=== PATIENT | female | born 1960 | race Caucasian/White ===

== ENCOUNTER 2022-12-20 13:12 | Emergency (ER) | payer OTHER ==
[~2022-12-20] VITALS: Ht 157.5 cm; Wt 98.4 kg
[2022-12-20] MEDS ORDERED: NEURONTIN800 MG (13:56)
[2022-12-20] MEDS ORDERED: KETO10TA2 PO (15:09)
[2022-12-20] MEDS ORDERED: NORFLEX100MG PO (15:09)
== END 2022-12-20 15:38 | disposition home or self-care (01) ==
LOC: ER 13:12
DX: M25.561 Pain in right knee (principal); M19.90 Unspecified osteoarthritis, unspecified site

== ENCOUNTER 2025-04-09 21:03 | Emergency (ER) | payer OTHER ==
[~2025-04-09] VITALS: Ht 157.5 cm; Wt 81.6 kg
[~2025-04-09 21:03] MED LIST: KETO10TA2 PO; NEURONTIN800 MG; NORFLEX100MG PO
[2025-04-10 00:17] LABS: BASO % 0.3 % (0.1-1.2); EOS # 0.12 (0.04-0.54); EOS % 0.9 % (0.7-7.0); HEMATOCRIT 33.6 % (34.1-44.9); LYMPH # 0.71 (1.18-3.74); LYMPH % 5.2 % (19.3-53.1); MEAN CORPUSCULAR HEMOGLOBIN 26.5 pg (25.6-32.2); MONO # 1.13 (0.24-0.82); MONO % 8.3 % (4.7-12.5); PLATELET COUNT 504 K/uL (163-369); RED BLOOD COUNT 4.15 M/uL (3.93-5.22); RED CELL DISTRIBUTION WIDTH 16.6 % (11.6-14.4)
[2025-04-10 00:23] LABS: COVID-19 AG NEGATIVE (NEGATIVE)
[2025-04-10 00:31] LABS: INFLUENZA A AG NEGATIVE (NEGATIVE); INFLUENZA B AG NEGATIVE (NEGATIVE)
[2025-04-10 00:49] LABS: URINE APPEARANCE Cloudy; URINE BILIRRUBIN Negative (NEGATIVE); URINE BLOOD Small; URINE COLOR Dark Yellow; URINE GLUCOSE Negative (NEGATIVE); URINE KETONE Trace (NEGATIVE); URINE LEUKOCYTE Trace; URINE NITRATE Negative; URINE PROTEIN 30 (NEGATIVE)
[2025-04-10 00:52] LABS: URINE BACTERIA 167.6 uL (0.0-1933); URINE CAST 2.94 uL (0.0-1.40); URINE EPITHELIAL CELLS 52.4 uL (0.0-38.8); URINE RBC 65.6 uL (0.0-20.8); URINE WBC 11.3 uL (0.0-23.2)
[2025-04-10 01:09] LABS: ALBUMIN 2.5 gm/dL (3.4-5.0); BILIRUBIN TOTAL 0.62 mg/dL (0.3-1.2); CALCIUM 8.9 mg/dL (8.5-10.1); CREATININE SERUM 0.86 mg/dL (0.55-1.02); GFR 66.86; GLOBULINA 5.4 G/DL (2.4-3.5); POTASSIUM 3.38 mEq/L (3.5-5.1); TOTAL PROTEIN 7.9 gm/dL (6.4-8.2)
== END 2025-04-10 02:06 | disposition home or self-care (01) ==
LOC: ER 21:03
PROVIDERS: Preventive Medicine Public Health & General Preventive Medicine
DX: R60.0 Localized edema (principal); Z85.89 Personal history of malignant neoplasm of other organs and systems; Z87.09 Personal history of other diseases of the respiratory system; Z20.822 Contact with and (suspected) exposure to COVID-19